=== PATIENT | male | born 1995 | race Caucasian/White ===

== ENCOUNTER 2024-03-06 05:55 | Inpatient (IN) | payer MEDICAID ==
[~2024-03-06] VITALS: Ht 182.9 cm; Wt 63.5 kg
[2024-03-06 05:58] VITALS: BP 106/71; PULSE 90; RESP 18; TEMP 98; O2SAT 98
[2024-03-06 07:23] LABS: BASOPHILS # (AUTO) 0.1 K/uL (0.00-0.22); BASOPHILS % (AUTO) 1.4 % (0.0-2.0); EOSINOPHILS % (AUTO) 0.5 % (0.0-4.0); HEMATOCRIT 40.9 % (36-52); HEMOGLOBIN 13.8 g/dL (12.0-18.0); LYMPHOCYTES # (AUTO) 2.1 K/uL (2.0-11.5); LYMPHOCYTES % (AUTO) 22.8 % (20.5-51.1); MEAN CORPUSCULAR HEMOGLOBIN 28 pg (27-31); MEAN CORPUSCULAR HGB CONC 34 g/dL (33-37); MEAN CORPUSCULAR VOLUME 82.8 fL (80-94); MONOCYTES # (AUTO) 0.6 K/uL (0.8-1.0); MONOCYTES % (AUTO) 6.4 % (1.7-9.3); NEUTROPHILS # (AUTO) 6.4 K/uL (1.8-7.7); NEUTROPHILS % (AUTO) 68.9 % (42.2-75.2); PLATELET COUNT (AUTO) 253 K/uL (140-450); RED BLOOD CELL COUNT(AUTO) 4.94 MIL/uL (4.20-6.10); RED CELL DISTRIBUTION WIDTH 13.5 % (11.6-13.7); WHITE BLOOD COUNT (AUTO) 9.3 K/uL (4.8-10.8)
[2024-03-06 07:36] LABS: ANION GAP 9.9 (8-16); CALCIUM 8.9 mg/dL (8.5-10.1); CARBON DIOXIDE 31.2 mmol/L (21-32); POTASSIUM 4.1 mmol/L (3.5-5.1)
[2024-03-06 07:53] LABS: ALBUMIN 4.1 g/dL (3.4-5.0); BILIRUBIN,DIRECT 0.1 mg/dL (0.0-0.3); TOTAL BILIRUBIN 0.4 mg/dL (0.0-1.0); TOTAL PROTEIN, SERUM 7.5 g/dL (6.4-8.2)
[2024-03-06 08:09] LABS: APPEARANCE,URINE CLEAR (CLEAR); BILIRUBIN,URINE NEGATIVE (NEGATIVE); BLOOD, URINE NEGATIVE (NEGATIVE); COLOR,URINE YELLOW (YELLOW); LEUKOCYTE ESTERASE ,URINE NEGATIVE (NEGATIVE); NITRITE, URINE NEGATIVE (NEGATIVE); PH,URINE 6.5 (5.0-9.0); PROTEIN,URINE NEGATIVE (NEGATIVE); UGLUCOSE NEGATIVE (NEGATIVE); UROBILINOGEN,URINE 0.2 EU/dL (0.2 - 1)
[2024-03-06] MEDS: ACETAMINOPHEN 325 MG TAB PO ONE (09:00)
[2024-03-06] MEDS ORDERED: MIRABULK PO (11:15)
[2024-03-06] MEDS: NACL 0.9% 1,000 ML IV ONE ×2 (11:55→14:22)
[2024-03-06] MEDS ORDERED: HYDROcodone/APAP 10/325 MG 1 TAB TAB PO PRN (12:50)
[2024-03-06] MEDS: metroNIDAZOLE 500 MG/NS PREMIX 100 ML IV SCH (13:00)
[2024-03-06] MEDS ORDERED: cefTRIAXone 1,000 MG VIAL ONE (14:05)
[2024-03-06 14:45] VITALS: BP 88/53; PULSE 63; RESP 14; TEMP 98; O2SAT 98
[2024-03-06] MEDS ORDERED: LIDOCAINE/EPI 1% 1:100000 20 ML VIAL INJ ONE (15:02)
[2024-03-06] MEDS ORDERED: BUPIVACAINE-MPF 0.25% 30 ML VIAL INJ ONE (15:02)
[2024-03-06] MEDS ORDERED: PROPOFOL 200 MG/20 ML VIAL IV ONE ×2 (15:16→15:45)
[2024-03-06] MEDS ORDERED: KETOROLAC 60 MG/2 ML VIAL IM ONE (15:16)
[2024-03-06] MEDS ORDERED: LIDOCAINE MPF 2% 100 MG/5 ML VIAL INJ ONE (15:16)
[2024-03-06] MEDS ORDERED: fentaNYL citrate 0.05 MG/ML VIAL ONE (15:17)
[2024-03-06] MEDS ORDERED: MIDAZOLAM 2 MG/2 ML VIAL ONE (15:18)
[2024-03-06] MEDS ORDERED: ONDANSETRON 4 MG/2 ML VIAL ONE (15:45)
== END 2024-03-06 16:50 | disposition home or self-care (01) | DRG 226 ==
LOC: MED 05:55 → MMU 13:26
PROVIDERS: ADMIT Hospitalist; ATTEND Hospitalist
PROC: 0DBR0ZZ Excision of Anal Sphincter, Open Approach (ICD-10-PCS; 2024-03-06)
PROC: 0D8R0ZZ Division of Anal Sphincter, Open Approach (ICD-10-PCS; principal; 2024-03-06 14:20)
DX: K60.1 Chronic anal fissure (principal)
CPT/HCPCS: 36415; 80048; 80076; 81003; 85025; 88304; 93005; 96360; 99285; J0696; J1644; J1885; J2001; J2250; J2405; J2704; J3010; J3490